=== PATIENT | male | born 1965 | race African-American/Black ===

== ENCOUNTER → 2021-04-10 | Outpatient (CLI) | payer OTHER ==
--- NOTE | 2021-04-10 10:21 | REP ---
INDICATION: PAIN IN BILAT KNEES. COMPARISON: None. TECHNIQUE: Single AP weightbearing view of the bilateral knees FINDINGS: Early advanced osteoarthritic degenerative changes are appreciated (right greater than left). Findings include subchondral sclerosis, predominately medial joint space narrowing, and small amounts of chondrocalcinosis. Left knee also includes medial osteophytosis. IMPRESSION: Early advanced osteoarthritic degenerative changes (right greater than left) <Electronically signed by Eliseo Vidal > 04/10/21 1015
== END ==
LOC: M SOG 09:42
PROVIDERS: ATTEND Orthopaedic Surgery Adult Reconstructive Orthopaedic Surgery
DX: M17.0 Bilateral primary osteoarthritis of knee (principal)

== ENCOUNTER → 2021-05-17 | Outpatient (CLI) | payer OTHER ==
--- NOTE | 2021-05-17 13:39 | REP ---
INDICATION: OA OF RT KNEE. COMPARISON: X-ray right knee 02/09/2021 TECHNIQUE: [facility] protocol with axial images through the hip, knee and ankle and both coronal and sagittal reconstructions for these joints, all and bone window settings. FINDINGS: Right hip: There is a very minimal rim osteophyte at the acetabular roof I do not see significant hip joint space narrowing. There is no AVN or fracture. Femoral head neck and trochanter show no fracture or focal lesion proximal femoral shaft was intact acetabuli pubic rami symphysis pubis were unremarkable Right knee: There is tricompartment osteoarthritic change. There is some mild narrowing of the medial compartment with sclerotic changes in tibial plateau. Prominent marginal osteophytes the medial greater than lateral joint margin. Spurring from the intercondylar margins as well as the tibial spines also noted. I see no tibial plateau depressed fracture. Proximal tibiofibular articulation is normal. Right ankle: There is a small plantar calcaneal spur. Achilles tendon grossly intact minor degenerative changes at the ankle with a few small ossific densities that may be old avulsions off the distal tip medial malleolus. There is no talar dome osteochondral defect. The distal tibia and fibula show no acute fracture. Subtalar joints show marginal osteophytes at the posterior margin of the posterior subtalar joint. Middle and anterior subtalar joints intact. The talonavicular calcaneocuboid joints are normal. Cuboid and other tarsal bones and their articulations which each other and the visualized metatarsals unremarkable. IMPRESSION: 1. Tricompartment osteoarthritic change at the knee greatest in the medial compartment with narrowing of the joint space and most prominent osteophytes at its joint margins. Sclerotic appearance of the tibial plafond and without tibial plateau depression fracture. No definite loose body or osteochondral defect. Less degenerative changes in the patellofemoral and least in the lateral joint compartment of the knee. No joint effusion or loose body. 2. Couple of tiny old avulsions off the distal tip medial malleolus. Mortise joint preserved. Small heel spur. No acute fracture or destructive lesion. 3. Minimal degenerative changes at the hip. Nothing acute there. <Electronically signed by Rio Guadarrama > 05/17/21 [id number]
== END ==
LOC: M RAD 12:52
PROVIDERS: ATTEND Orthopaedic Surgery Adult Reconstructive Orthopaedic Surgery
DX: M17.0 Bilateral primary osteoarthritis of knee (principal); Z87.828 Personal history of other (healed) physical injury and trauma

== ENCOUNTER 2021-06-04 06:07 | Inpatient (IN) | payer OTHER ==
[2021-06-04] VITALS (7 sets, daily range): BP systolic 101–138; BP diastolic 63–88
[~2021-06-04] VITALS: Ht 170.2 cm; Wt 100.6 kg
[~2021-06-04 06:07] MED LIST: ACETAMINOPHEN 500 MG TAB PO ONE; LR 1,000 ML IV ONE; NAPROXEN 250 MG TAB PO ONE; NS 1,000 ML IV ONE; PREGABALIN 25 MG CAP (LYRICA) PO ONE; ROPIVA 125MG/EPINEPH 0.25MG/CLONID 40MCG/KETOR 15MG IN NS 50ML SYRINGE PA ONE; ceFAZolin SOD 2 GM in IV 1 EA IV ONE; dexameTHASONE 4 MG/ML 1ML VIAL (J1100 PER 1MG) IV ONE
[2021-06-04] MEDS ORDERED: propofoL 200 MG/20 ML VIAL As Ordered ONE ×4 (07:07→08:21)
[2021-06-04] MEDS ORDERED: fentaNYL 100 MCG/2 ML INJECTION (J3010) As Ordered ONE (07:07)
[2021-06-04] MEDS ORDERED: MIDAZOLAM INJ 2MG/2ML VIAL (J2250 PER 1MG) As Ordered ONE (07:08)
[2021-06-04] MEDS ORDERED: TRANEXAMIC ACID 100 MG/ML 10ML VIAL As Ordered ONE ×2 (07:12→08:04)
[2021-06-04] MEDS ORDERED: PHENYLephrine 500MCG 5ML (100MCG/ML) SYRINGE As Ordered ONE (08:36)
[2021-06-04] MEDS ORDERED: KETOROLAC 60MG 2ML VIAL As Ordered ONE (10:08)
[2021-06-04] MEDS ORDERED: LR 1,000 ML IV SCH (11:00)
[2021-06-04] MEDS ORDERED: METOCLOPRAMIDE INJ 10MG/2ML VIAL (J2765 PER 1) IV PRN (11:00)
[2021-06-04] MEDS ORDERED: ONDANSETRON 4MG/2ML VIAL IV PRN ×2 (11:00→11:10)
[2021-06-04] MEDS ORDERED: oxyCODONE 5MG TAB PO PRN ×3 (11:00→11:15)
[2021-06-04] MEDS ORDERED: MORPHINE 2 MG/ML 1ML VIAL (J2270) IV PRN (11:00)
[2021-06-04] MEDS ORDERED: fentaNYL 100 MCG/2 ML INJECTION (J3010) IV PRN (11:00)
--- NOTE | 2021-06-04 11:06 | ROOPDOC ---
[facility] Report Of Operation Report of Operation DATE OF PROCEDURE: 06/04/21 PREPROCEDURE DIAGNOSES: Right knee osteoarthritis POSTPROCEDURE DIAGNOSES: Right knee osteoarthritis PROCEDURE PERFORMED: Right Eric total knee SURGEON: Funmi Licona MD FINANCIAL ASSISTANCE ADVISOR: JUDE sheppard MD ANESTHESIA: Spinal. ESTIMATED BLOOD LOSS: Approximately less than 100 mL. COMPLICATIONS: No known complications. REMARKS: Patient was seen in the preoperative area and right knee was marked. Consent was reviewed for the Eric right total knee arthroplasty as well. Risks and benefits were discussed as previously described. Components: Milo triathlon system press-fit 38 x 11 mm patella Size 7 tibia tritanium Size 6 femur CR tritanium 9 mm CS polyethylene FINDINGS: Tricompartmental osteoarthritis left knee SPECIMENS REMOVED: None PROCEDURE NOTE: The patient was seen in the preoperative area and status was updated. [facility] plan was reviewed prior to surgery and adjusted appropriately. DESCRIPTION OF PROCEDURE: Patient was taken to the operating room and after a checklist was performed, the underwent a spinal anesthetic. The patient was then placed supine. The operative leg was then cleansed with chlorhexidine wash followed by 2 times alcohol swab followed by hydrogen peroxide wash. 2 chlorhexidine prep once were then used to clean the leg. The operative extremit y was then prepped and draped in the standard sterile fashion. This was done utilizing the Eric leg mejia device. A surgical pause was then carried out followed by the surgical safety checklist. 2 stab hole incisions were made approximately 4 fingerbreadths below the tibial tubercle of the left knee for the tibial array pins which were placed. The midline incision over the knee followed by the medial arthrotomy was then carried out. Cautery was used to control bleeders. The soft tissue and fat pad were removed using electrocautery. The femoral array pins were then placed in the medial femoral condyle. The femoral tracker was then placed followed by the tibial tracker. The arrays were then placed over the array pins. The hip center was checked followed by the medial and lateral condyles of the ankle. The registration of the femur and tibia then occurred using the arrays in the Eric system. Osteophytes were removed at this point, as needed. The leg was then brought into extension and varus and valgus stresses were applied in extension and spoons were used for tensioning as well as a Lyons in flexion of approximately 95 degrees. Once the soft tissue adjustments were made to the Eric plan, the plan was carried out utilizing the robot. The 90 degree blade cuts were made first followed by the straight blade cuts. Once all the cuts were completed with the assistance of the Eric robot, the rongeur and osteotome were used to remove the bone segments. A lamina screen printing cloth spreader was used to help remove the medial lateral menisci remnants followed by a curved osteotome to remove any posterior osteophytes from the medial or lateral femoral condyles. A trial femur was placed and secured with a pin. The tibial component was then placed with a 9mm polyinsert. This was brought into extension and found to have appropriate stability in both flexion and extension. The leg was then brought into extension and the patella was measured using the caliper. A freehand cut using towel clips was used to remove the patellar surfa ce. This was then clamped and reamed appropriately for the press-fit components. A trial was placed and taken through range of motion and found to be nice and stable. The tibia was then appropriately positioned with the correct amount of rotation lined up with the medial third of the tibial tubercle. This was pinned and the keel punch was completed followed by the four-point reaming for the press-fit component. The CR femur had the lug holes drilled. The RE CK local anesthetic cocktail was instilled in the standard fashion. The wound was thoroughly irrigated with pulse lavage. The tibia was then press-fit in position using the mallet and impactors. The femur was then flexed high and positioned aligning the lug holes. This component was impacted then brought out into 90 degrees and impacted further to avoid anywhere to the metal components. The 9 mm polyethylene insert was then trialed, found appropriate and the final component was placed and impacted. The leg was brought into extension and the press-fit polyethylene patellar component was tightened and impacted utilizing the compression device The leg was taken through stable range of motion. It was thoroughly irrigated. Electrocautery was used to control any bleeders. A layered closure using #1 Vicryl followed by strata fix for the arthrotomy. #1 Vicryl to close down the subcutaneous tissue followed by running subcutaneous 2.0 and then a three-point 0 Monocryl subcuticular stitch antibacterial. Layered irrigation with saline and Betadine occurred. Steri-Strips were applied followed by the Mepilex dressing Patient tolerated the procedure well with no known complications. They were taken to the recovery room in stable condition. The patient will be admitted to the hospitalist service with plan for evaluation with physical therapy and possible discharge home tomorrow. Discharge Instructions Total Knee Arthroplasty 1. Pain: You may take oxycodone as prescribed for pain. Supplement with Naproxen and Tylenol as needed. Ice machine to operative knee as tolerated. 2. Wound care: Remove dressing on postop day 7. Call [phone] with any questions or concerns. Hygiene: The patient may shower. No tub baths. Check dressing seal prior to bathing. 3. Activity: WBAT right lower extremity. Front wheeled walker versus crutches for ambulation. Fall precautions. 4. Driving: No driving until cleared by your surgeon. Do not drive if taking narcotic pain medications as these may make you drowsy. 5. DVT Prophylaxis: Continue taking aspirin 81 mg p.o. twice daily as prescribed for the prevention of blood clots. Ankle pumps every 1 hour while awake. JIMI hose at all times for 1 month after surgery. May remove for hygiene and wound care. 6. Placement: Plan is to discharge patient to home with home health including nursing and physical therapy. 7. Surgeon Follow-up: The patient is scheduled to be seen in Dr. Licona's office 2 weeks post op with xrays. 8. Primary care Follow-up: Please see your primary care provider in the next 2 to 5 weeks for general medical re-evaluation and medication review. 9. Labs: CBC without differential and BMP to be drawn on postop day 3 with results to PCP and please fax to [phone]. 10. Please contact [facility] if you have any questions or concerns at [phone]. FUNMI LICONA MD Jun 04, 2021 11:06
[2021-06-04] MEDS ORDERED: traMADol 50 MG TAB PO PRN (11:10)
[2021-06-04] MEDS ORDERED: SENNA 8.6 MG TAB (SENOKOT) PO PRN (11:10)
--- NOTE | 2021-06-04 11:11 | REP ---
INDICATION: POST OP IN PACU COMPARISON: 02/09/2021 a pre operative outside exam. TECHNIQUE: AP and lateral portable views. FINDINGS: Since the last examination a total knee prosthetic device has been placed the femoral and tibial components of which are well seated and well approximated. There is expected postoperative soft tissue swelling. The alignment is near anatomical. IMPRESSION: Within normal limits <Electronically signed by Zach Jean > 06/04/21 1104
[2021-06-04] MEDS: DOCUSATE SODIUM 100MG CAPSULE PO SCH ×2 (12:44→20:48)
[2021-06-04] MEDS: ACETAMINOPHEN TAB 650MG DOSE (2X325MG) PO SCH ×2 (12:45→18:05)
[2021-06-04] MEDS: FERROUS SULFATE 325MG TAB PO SCH (12:45)
[2021-06-04] MEDS: ASCORBIC ACID 500 MG TAB PO SCH (12:45)
[2021-06-04] MEDS: NAPROXEN 250 MG TAB PO SCH ×2 (12:47→20:49)
--- NOTE | 2021-06-04 13:32 | HPEPDOC ---
[facility] Medical History & Physical Date of Admission Jun 04, 2021 Date of Service: Jun 04, 2021 Primary Care Physician: A Attending Physician: WILLIE VALENTIN MD History and Physical CHIEF COMPLAINT: Patient is being admitted for post-operation observation for non-complicated total knee arthroplasty. HISTORY OF PRESENT ILLNESS: Patient has been dealing with knee pain from osteoarthritis that he developed while serving in the [employer] in [facility]. Patient's knee pain started in 2007 but got extremely painful in 2012. The patient denies any trauma to the knee that caused his pain. Patient's total knee arthroplasty was performed without complications. Patient says that his knee pain is severely reduced after the surgery from what it was before even at rest. PAST MEDICAL HISTORY: 1. Previous infection with TB in 1994 when he was serving in the [employer]. Resolved with Antibiotic course for 6 months. PAST SURGICAL HISTORY: 1. Total knee arthroplasty - reason for current admission SOCIAL HISTORY: Employment: Active Tobacco use: None ETOH: None Illicit drug use: None IV drug use: None FAMILY HISTORY: Father: None Mother: None Siblings: None Children: No medical history Hereditary Diseases: No medical history Unexpected deaths due to medical reasons: Aunt was diagnosed with colon cancer. Grandfather from TB at 89 yrs old. ALLERGIES: Please see below. REVIEW OF SYSTEMS: CONSTITUTIONAL: Patient denies chills or night sweats. HEENT: Patient denies any pain or nuchal rigidity CARDIOVASCULAR: RESPIRATORY: Patient denies SOB, dyspnea, or hemoptysis. GASTROINTESTINAL: Patient denies N/V, ABD pain, constipation or diarrhea. Patient has not had a bowel movement since yesterday. GENITOURINARY: Patient denies dysuria or frequency. Patient has not urinated since surgery, but urinated right before. SKIN: Dry, warm, and flushed skin. MUSCULOSKELETAL: No loss of ROM of either extremity from surgery. NEUROLOGICAL: No pain, numbness, or tingling in Lower extremities. PSYCHIATRIC: Alert and oriented *3. HOME MEDICATIONS: Please see below. PHYSICAL EXAMINATION: VITAL SIGNS: see below GENERAL APPEARANCE: No fever, appears in no distress. HEENT: No palpable or visible thyroid or lymph node enlargement. CARDIOVASCULAR: Pt denies chest pain or palpitations. LUNGS: clear and equal BL lung sounds. ABDOMEN: Soft abdomen with no tenderness on palpation. Normal bowel sounds EXTREMITIES: No LE edema. 2/4 pedal and posterior tibial pulses BL. NEUROLOGICAL: No weakness in dorsiflexion or plantarflexion of both feet. LABORATORY DATA: See below. IMAGING: Knee X-ray 06/04/21 - 11am As reported: IMPRESSION: Within normal limits MICROBIOLOGY: Please see below. ASSESSMENT: Pt is a 55 year old male with a past medical history of TB infection in 1994 and Bl osteoartrhitis of the knees. Patient was admitted to the hospital for post-operative observation after un-complicated total knee arthroplasty of his right knee. Incidental finding on labs is that patient was hyperglycemic. Patient currently in much less pain than he complained of before the surgery. . PLAN: Total knee arthroplasty observation - Bacterial prophylaxis: cefazolin IV till discharge aleksandr. - Pain management: Patient is receiving Tylenol and alleve, oxycodone has been prescribed as needed. - N/V: Ondansetron has been prescribed as needed. Diabetic workup - Patient was found to be hyperglycemic (BG of 438 g/dl) on routine labs - patient currently complains of no symptoms. - HBAIc was ordered after hyperglycemia was discovered. Patient's labs will be monitored. - Patient was given Levemir to control blood glucose. - Patient will be coached and informed on his Diabetes and how to manage his diabetes. DVT prophylaxis - Aspirin 81 mg for DVT prophylaxis Disposition: Patient will most likely be discharged Aleksandr morning. Code status: Full code Vital Signs Vital Signs Date Time Temp Pulse Resp B/P (MAP) Pulse Ox O2 Delivery O2 Flow Rate FiO2 06/04/21 12:15 97.3 65 16 101/63 (76) 99 06/04/21 11:25 Room Air Home Medications No Active Prescriptions or Reported Meds Allergies Coded Allergies: No Known Allergies (Unverified , 05/16/21) A-FIB/CHADSVASC A-FIB History Current/History of A-Fib/PAF?: No Current PO Anticoag Therapy: No Age/Risk Factor Scoring CHADSVASC: CHADSVASC Response (Comments) Value Age Risk Factor Age < 65 years old 0 Gender Risk Factor Male 0 Hx of HTN No 0 Hx of Stroke/TIA/or VTE No 0 Hx of Diabetes Yes 1 Hx of Vascular Disease No 0 Total 1 Treatment Treatment ordered: NONE Reason Anticoagulant not given: Not indicated/[id number] SON ESCOTO S-3 Jun 04, 2021 13:32
[2021-06-04 15:42] LABS: HEMATOCRIT 38.2 % (42.0-52.0); HEMOGLOBIN 13.2 g/dl (13.5-17.5); MEAN CORPUSCULAR HEMOGLOBIN 28.8 pg (27.0-33.0); MEAN CORPUSCULAR HGB CONC 34.6 g/dl (32.0-36.5); MEAN CORPUSCULAR VOLUME 83.4 fl (80.0-96.0); PLATELET COUNT, AUTOMATED 234 10^3/uL (150-450); RED BLOOD COUNT 4.58 10^6/uL (4.30-6.10); WHITE BLOOD COUNT 11.4 10^3/uL (4.0-10.0)
[2021-06-04 16:14] LABS: BLOOD UREA NITROGEN 14 MG/DL (7-18); CALCIUM LEVEL 8.8 MG/DL (8.5-10.1); CARBON DIOXIDE LEVEL 25 MEQ/L (21-32); CHLORIDE LEVEL 105 MEQ/L (98-107); CREATININE FOR GFR 1.44 MG/DL (0.70-1.30); GLOMERULAR FILTRATION RATE > 60.0 (>56); GLUCOSE, FASTING 438 MG/DL (70-100); POTASSIUM SERUM 4.2 MEQ/L (3.5-5.1); SODIUM LEVEL 136 MEQ/L (136-145)
[2021-06-04 16:16] LABS: TOTAL 25(OH) VITAMIN D 17.4 NG/ML (30.0-100.0)
[2021-06-04] MEDS ORDERED: LEVEMIR (INSULIN DETEMIR) 1 UNITS/0.01ML SC ONE (16:20)
[2021-06-04] MEDS: ceFAZolin SOD 2 GM in IV 1 EA IV SCH (16:23)
[2021-06-04] MEDS ORDERED: DEXTROSE 50% 50 ML SYRINGE IV PRN (16:25)
[2021-06-04] MEDS ORDERED: GLUCAGON INJ 1MG VIAL SC PRN (16:25)
[2021-06-04] MEDS ORDERED: GLUCOSE 4GM CHEW TABLET PO PRN (16:25)
[2021-06-04] MEDS: HumaLOG INSULIN (NovoLOG) PER UNIT SC SCH (16:42)
[2021-06-04 17:01] LABS: HEMOGLOBIN A1c 8.4 %
[2021-06-04] MEDS ORDERED: HumaLOG INSULIN (NovoLOG) PER UNIT SC SCH (21:00)
[2021-06-05] MEDS: ACETAMINOPHEN TAB 650MG DOSE (2X325MG) PO SCH ×3 (00:41→11:57)
[2021-06-05] MEDS: ceFAZolin SOD 2 GM in IV 1 EA IV SCH (00:41)
[2021-06-05 06:00] VITALS: BP 132/77
[2021-06-05 06:12] LABS: HEMATOCRIT 36.3 % (42.0-52.0); HEMOGLOBIN 12.6 g/dl (13.5-17.5); MEAN CORPUSCULAR HEMOGLOBIN 28.6 pg (27.0-33.0); MEAN CORPUSCULAR HGB CONC 34.7 g/dl (32.0-36.5); MEAN CORPUSCULAR VOLUME 82.5 fl (80.0-96.0); PLATELET COUNT, AUTOMATED 226 10^3/uL (150-450); WHITE BLOOD COUNT 22.5 10^3/uL (4.0-10.0)
[2021-06-05 06:42] LABS: BLOOD UREA NITROGEN 17 MG/DL (7-18); CALCIUM LEVEL 8.6 MG/DL (8.5-10.1); CARBON DIOXIDE LEVEL 26 MEQ/L (21-32); CHLORIDE LEVEL 109 MEQ/L (98-107); CREATININE FOR GFR 1.22 MG/DL (0.70-1.30); GLOMERULAR FILTRATION RATE > 60.0 (>56); GLUCOSE, FASTING 234 MG/DL (70-100); SODIUM LEVEL 141 MEQ/L (136-145)
--- NOTE | 2021-06-05 07:39 | IPNPDOC ---
Text Note Date of Service The patient was seen on 06/05/21. NOTE POD1 R TKA Pt well. No significant complaints or concerns. Local anesthetic wearing off. Pt states he mobilized to the bathroom last night without his walker or assistance. Bulky dressing intact. Removed. No signs of staining to the dressing, intact. Grossly NVI right foot/ankle. Moving toes and ankle. Palpable DP pulse. Filled Ice machine and applied for the patient with pillowcase barrier. PACU xray imaging ordered and reviewed by myself, shows the right TKA in position without signs of complication. Plan for PT evaluation with likely discharge home today. Discharge Instructions Total Knee Arthroplasty 1. Pain: You may take oxycodone as prescribed for pain. Supplement with Naproxen and Tylenol as needed. Ice pack to operative knee as tolerated. 2. Wound care: Remove dressing on postop day 7. Call [phone] with any questions or concerns. Hygiene: The patient may shower. No tub baths. Check dressing seal prior to bathing. 3. Activity: WBAT right lower extremity. Front wheeled walker versus crutches for ambulation. Fall precautions. 4. Driving: No driving until cleared by your surgeon. Do not drive if taking narcotic pain medications as these may make you drowsy. 5. DVT Prophylaxis: Continue taking ASA 81 mg PO BID as prescribed for the pr evention of blood clots. Ankle pumps every 1 hour while awake. JIMI hose at all times for 1 month after surgery. May remove for hygiene and wound care. 6. Placement: Plan is to discharge patient to home with home health including nursing and physical therapy. 7. Surgeon Follow-up: The patient is scheduled to be seen in Dr. Licona's office 2 weeks post op with xrays. 8. Primary care Follow-up: Please see your primary care provider in the next 2 to 5 weeks for general medical re-evaluation and medication review. 9. Labs: CBC without differential and BMP to be drawn on POD 3 with results to PCP and please fax to [phone]. 10. Please contact [facility] if you have any questions or concerns at [phone]. VS,Fishbone, I+O VS, Fishbone, I+O Laboratory Tests 06/04/21 15:13 06/05/21 05:50 Vital Signs Date Time Temp Pulse Resp B/P (MAP) Pulse Ox O2 Delivery O2 Flow Rate FiO2 06/05/21 06:00 97.5 61 18 132/77 (95) 97 Room Air I&O- Last 24 Hours up to 6 AM 06/05/21 06:00 Intake Total 4274 ml Output Total 100 ml Balance 4174 ml FUNMI LICONA MD Jun 05, 2021 07:39
[2021-06-05] MEDS: NAPROXEN 250 MG TAB PO SCH (08:15)
[2021-06-05] MEDS: DOCUSATE SODIUM 100MG CAPSULE PO SCH (08:15)
[2021-06-05] MEDS: ASCORBIC ACID 500 MG TAB PO SCH (08:15)
[2021-06-05] MEDS: FERROUS SULFATE 325MG TAB PO SCH (08:15)
[2021-06-05] MEDS: HumaLOG INSULIN (NovoLOG) PER UNIT SC SCH ×2 (08:15→11:57)
[2021-06-05] MEDS ORDERED: LEVEMIR (INSULIN DETEMIR) 1 UNITS/0.01ML SC SCH (09:00)
[2021-06-05 10:00] VITALS: BP 128/74
[2021-06-05] MEDS ORDERED: OXYC-517 PO ×2 (11:54→12:00)
[2021-06-05] MEDS ORDERED: FERR1TAB8 PO (11:54)
[2021-06-05] MEDS ORDERED: ECOT81TA5 PO (11:54)
[2021-06-05] MEDS ORDERED: METF-839 PO (11:54)
[2021-06-05] MEDS ORDERED: NAPR-849 PO (11:54)
[2021-06-05] MEDS ORDERED: LANCMIS33 TOP (11:54)
[2021-06-05] MEDS ORDERED: ALCO1MED XX (11:54)
[2021-06-05] MEDS ORDERED: GLUCMIS7 XX (11:54)
--- NOTE | 2021-06-05 13:38 | IPNPDOC ---
Text Note Date of Service The patient was seen on 06/05/21. Subjective: Patient was admitted to the hospital for observation after total knee arthroplasty of the right knee. Patient was lying supine when seen by medical team. Patient was not in acute distress. Patient's vitals were in normal limits. Review of systems: Pt denies headaches, chest pain, palpitations, SOB, dyspnea, ABD pain, urinary pain, tingling, and numbness. Physical exam: General: No fever or chills Psych: Alert and oriented *3 HEENT: No thyroid or lymph node enlargement Heart: Normal S1 and S2 heart sounds. No murmur or no extra heart sounds. Lungs: BL clear and equal breath sounds Extremities: No edema, Pt 2/4 BL posterior tibial and pedal pulses. Neuro: No weakness or loss of sensation in the patient's feet. Assessment: Pt is a 55 year old male with a past medical history of TB infection in 1994 and Bl osteoartrhitis of the knees. Patient was admitted to the hospital for po st-operative observation after un-complicated total knee arthroplasty of his right knee. Incidental finding on labs is that patient was hyperglycemic and has elevated HBAIC - patient was diagnosed with diabetes. Patient currently in much less pain than he complained of before the surgery. PLAN: Total knee arthroplasty observation - Bacterial prophylaxis: cefazolin IV till discharge aleksandr. - Pain management: Patient is receiving Tylenol and Naproxen, oxycodone has been prescribed as needed. - N/V: Ondansetron has been prescribed as needed. Diabetic workup - Patient was found to be hyperglycemic (BG of 438 g/dl) on routine labs yesterday- patient currently complains of no symptoms. - Patient's BG this morning was ___g/dl - HBAIc last night was 8.__% - indicating the patient has a diagnosis of Diabetes mellitus - Patient was given Levemir to control blood glucose in the hospital. - Patient will be DVT prophylaxis - Aspirin 81 mg for DVT prophylaxis Disposition: Patient will most likely be discharged Aleksandr morning. 2. Wound care: Remove dressing on postop day 7. Call [phone] with any questions or concerns. Hygiene: The patient may shower. No tub baths. Check dressing seal prior to bathing. 3. Activity: WBAT right lower extremity. Front wheeled walker versus crutches for ambulation. Fall precautions. 4. Driving: No driving until cleared by your surgeon. Do not drive if taking narcotic pain medications as these may make you drowsy. 5. DVT Prophylaxis: Continue taking ASA 81 mg PO BID as prescribed for the prevention of blood clots. Ankle pumps every 1 hour while awake. JIMI hose at all times for 1 month after surgery. May remove for hygiene and wound care. 6. Placement: Plan is to discharge patient to home with home health including nursing and physical therapy. 7. Surgeon Follow-up: The patient is scheduled to be seen in Dr. Moss's office 2 weeks post op with xrays. 8. Primary care Follow-up: Please see your primary care provider in the next 2 to 5 weeks for general medical re-evaluation and medication review. 9. Labs: CBC without differential and BMP to be drawn on POD 3 with results to PCP and please fax to [phone]. 10. Please contact [facility] if you have any questions or concerns at [phone]. VS,Fishbone, I+O VS, Fishbone, I+O Laboratory Tests 06/04/21 15:13 06/05/21 05:50 Vital Signs Date Time Temp Pulse Resp B/P (MAP) Pulse Ox O2 Delivery O2 Flow Rate FiO2 06/05/21 10:00 97.2 76 19 128/74 (92) 94 Room Air I&O- Last 24 Hours up to 6 AM 06/05/21 06:00 Intake Total 4274 ml Output Total 100 ml Balance 4174 ml SON ESCOTO S-3 Jun 05, 2021 13:38
--- NOTE | 2021-06-05 13:52 | DS.PDOC ---
Discharge Summary General Date of Admission Jun 04, 2021 at 12:07 Date of Discharge 06/05/2021 Attending Physician: WILLIE VALENTIN MD Discharge Summary PROCEDURES PERFORMED DURING STAY: total knee arthroplasty. ADMITTING DIAGNOSES: 1. Observation for total knee arthroplasty DISCHARGE DIAGNOSES: 1. Observation for total knee arthroplasty 2. Diabetes Mellitus COMPLICATIONS/CHIEF COMPLAINT: Right Knee Osteoarthritis. HISTORY OF PRESENT ILLNESS: Patient was admitted to the hospital for post- operative observation after un-complicated total knee arthroplasty of his right knee. Patient has had knee pain since 2007 and started to worsen in 2012 when the pt was stationed in [facility]. HOSPITAL COURSE: Patient was admitted to the hospital for post-operative observation after un-complicated total knee arthroplasty of his right knee. Incidental finding on labs patient was hyperglycemic and has elevated HBAIc - patient was diagnosed with diabetes. HBAIc last night was 8.4% - confirming Diabetes mellitus. Patient's BG this morning was 236 g/dl DISCHARGE MEDICATIONS: Please see below. ALLERGIES: Please see below. Review of systems: Pt denies headaches, chest pain, palpitations, SOB, dyspnea, ABD pain, urinary pain, tingling, and numbness. PHYSICAL EXAMINATION ON DISCHARGE: General: No fever or chills Psych: Alert and oriented *3 HEENT: No thyroid or lymph node enlargement Heart: Normal S1 and S2 heart sounds. No murmur or no extra heart sounds. Lungs: BL clear and equal breath sounds. Extremities: No edema, Pt 2/4 BL posterior tibial and pedal pulses. Neuro: No weakness or loss of sensation in the patient's feet. LABORATORY DATA: Please see below. IMAGING: No new imaging. PROGNOSIS: Good ACTIVITY: Refer to notes from orthopedics. DIET: Patient was coached on healthy eating to control his diabetes. DISCHARGE PLAN: - Pain management: Patient is receiving Tylenol and Naproxen, oxycodone has been prescribed as needed. - N/V: Ondansetron has been prescribed as needed. - Metformin 2 times a day oral, 500mg. - DVT prophylaxis- Aspirin 81 mg for DVT prophylaxis - Orthopedic instructions for further instructions regarding post-operative care DISPOSITION: Discharged today. DISCHARGE INSTRUCTIONS: - Pain management: Patient is receiving Tylenol and Naproxen, oxycodone has been prescribed as needed. - N/V: Ondansetron has been prescribed as needed. - Metformin 2 times a day oral, 500mg. - DVT prophylaxis- Aspirin 81 mg for DVT prophylaxis - Orthopedic instructions for further instructions regarding post-operative care ITEMS TO FOLLOWUP ON ON OUTPATIENT: 1. Orthopedic instructions for further instructions regarding post-operative care DISCHARGE CONDITION: Stable. TIME SPENT ON DISCHARGE: 45 minutes. Vital Signs/I&Os Vital Signs Date Time Temp Pulse Resp B/P (MAP) Pulse Ox O2 Delivery O2 Flow Rate FiO2 06/05/21 10:00 97.2 76 19 128/74 (92) 94 Room Air I&O- Last 24 Hours up to 6 AM 06/05/21 06:00 Intake Total 4274 ml Output Total 100 ml Balance 4174 ml Laboratory Data Labs 24H Laboratory Tests 2 06/04/21 15:13: Nucleated Red Blood Cells % (auto) 0.0, Anion Gap 6L, Glomerular Filtration Rate > 60.0, Estimated Mean Plasma Glucose 194H, Hemoglobin A1c 8.4, Calcium Level 8.8, 25-Hydroxy Vitamin D Total 17.4L 06/04/21 20:41: Bedside Glucose (Misc Panel) 312H 06/05/21 05:50: Nucleated Red Blood Cells % (auto) 0.0, Anion Gap 6L, Glomerular Filtration Rate > 60.0, Calcium Level 8.6 06/05/21 11:29: Bedside Glucose (Misc Panel) 349H CBC/BMP Laboratory Tests 06/04/21 15:13 06/05/21 05:50 FSBS Laboratory Tests Test 06/04/21 20:41 06/05/21 11:29 Range/Units Bedside Glucose (Misc Panel) 312 349 70-105 MG/DL Discharge Medications Scheduled Aspirin (Ecotrin) 81 Mg Tablet.dr, 81 MG PO BID Ferrous Sulfate (Ferrous Sulfate) 325 Mg Tablet, 325 MG PO DAILY Metformin HCl (Metformin HCl) 500 Mg Tablet, 1 TAB PO BID Naproxen (Naproxen) 250 Mg Tablet, 250 MG PO Q12H Scheduled PRN Oxycodone HCl (Oxycodone HCl) 5 Mg Tablet, 5 MG PO Q4H PRN for MODERATE PAIN (PS 5-8) . Allergies Coded Allergies: No Known Allergies (Unverified , 05/16/21) SON ESCOTO S-3 Jun 05, 2021 13:52
== END 2021-06-05 13:15 | disposition home health service (06) | DRG 470 ==
LOC: M SDC 06:07 → M MS5PR 11:50 → M SDC 12:06 → M MS5PR 12:07
PROVIDERS: ADMIT Orthopaedic Surgery Adult Reconstructive Orthopaedic Surgery; ATTEND Internal Medicine
PROC: 8E0Y0CZ Robotic Assisted Procedure of Lower Extremity, Open Approach (ICD-10-PCS; 2021-06-04)
PROC: 0SRC0JZ Replacement of Right Knee Joint with Synthetic Substitute, Open Approach (ICD-10-PCS; principal; 2021-06-04 07:30)
DX: M17.11 Unilateral primary osteoarthritis, right knee (principal); E11.9 Type 2 diabetes mellitus without complications

== ENCOUNTER → 2021-06-28 | Outpatient (CLI) | payer OTHER ==
[~2021-06-28] MED LIST changes: -ACETAMINOPHEN 500 MG TAB PO ONE; +ALCO1MED XX; +ECOT81TA5 PO; +FERR1TAB8 PO; +GLUCMIS7 XX; +LANCMIS33 TOP; -LR 1,000 ML IV ONE; +METF-839 PO; +NAPR-849 PO; -NAPROXEN 250 MG TAB PO ONE; -NS 1,000 ML IV ONE; +OXYC-517 PO; -PREGABALIN 25 MG CAP (LYRICA) PO ONE; -ROPIVA 125MG/EPINEPH 0.25MG/CLONID 40MCG/KETOR 15MG IN NS 50ML SYRINGE PA ONE; -ceFAZolin SOD 2 GM in IV 1 EA IV ONE; -dexameTHASONE 4 MG/ML 1ML VIAL (J1100 PER 1MG) IV ONE
== END ==
LOC: M SOG 08:56
PROVIDERS: ATTEND Orthopaedic Surgery Adult Reconstructive Orthopaedic Surgery
DX: Z48.89 Encounter for other specified surgical aftercare (principal)

== ENCOUNTER → 2021-07-09 | Outpatient (REF) | payer OTHER ==
[2021-07-09 18:12] LABS: MALB URINE SIEMENS 25.9 MG/L; MAU/CREAT RATIO 15.4 MCG/MG (0.0-30.0)
== END ==
LOC: M LAB REF 17:21
PROVIDERS: ATTEND Nurse Practitioner Family
DX: E11.65 Type 2 diabetes mellitus with hyperglycemia (principal)

== ENCOUNTER 2021-12-04 06:17 | Observation (INO) | payer OTHER ==
[~2021-12-04] VITALS: Ht 172.7 cm; Wt 97.0 kg
[2021-12-04] VITALS (8 sets, daily range): BP systolic 111–118; BP diastolic 70–74
[~2021-12-04 06:17] MED LIST changes: +ACETAMINOPHEN 500 MG TAB PO ONE; +ASPI-1 PO; +JARD1TAB PO; +LR 1,000 ML IV ONE; +NAPROXEN 250 MG TAB PO ONE; +NS 1,000 ML IV ONE; +PREGABALIN 25 MG CAP (LYRICA) PO ONE; +ceFAZolin SOD 2 GM in IV 1 EA IV ONE; +dexameTHASONE 4 MG/ML 1ML VIAL (J1100 PER 1MG) IV ONE
[2021-12-04] MEDS ORDERED: fentaNYL 100 MCG/2 ML INJECTION As Ordered ONE (06:49)
[2021-12-04] MEDS ORDERED: MIDAZOLAM INJ 2MG/2ML VIAL (J2250 PER 1MG) As Ordered ONE (06:49)
[2021-12-04] MEDS ORDERED: ROCURONIUM BROMIDE 50 MG/5 ML VIAL As Ordered ONE (06:50)
[2021-12-04] MEDS ORDERED: propofoL 200 MG/20 ML VIAL As Ordered ONE (06:50)
[2021-12-04] MEDS ORDERED: LIDOCAINE 2% 100MG/5ML SDV (FOR ANES.) As Ordered ONE (06:50)
[2021-12-04] MEDS ORDERED: ROPIVA 125MG/EPINEPH 0.25MG/CLONID 40MCG/KETOR 15MG IN NS 50ML SYRINGE PA ONE (07:00)
[2021-12-04] MEDS ORDERED: TRANEXAMIC ACID 100 MG/ML 10ML VIAL As Ordered ONE (07:07)
[2021-12-04] MEDS ORDERED: propofoL 500 MG/50 ML VIAL As Ordered ONE ×3 (07:20→09:04)
[2021-12-04] MEDS ORDERED: dexameTHASONE 4 MG/ML 1ML VIAL (J1100 PER 1MG) As Ordered ONE (07:45)
[2021-12-04] MEDS ORDERED: METOPROLOL 5 MG/5 ML VIAL As Ordered ONE (08:14)
[2021-12-04] MEDS ORDERED: GLYCOPYRROLATE INJ 0.2 MG/ML 2 ML VIAL As Ordered ONE (09:47)
[2021-12-04] MEDS ORDERED: KETOROLAC 60MG 2ML VIAL As Ordered ONE (09:48)
[2021-12-04] MEDS ORDERED: ONDANSETRON 4MG/2ML VIAL IV PRN ×2 (10:20→10:30)
[2021-12-04] MEDS ORDERED: fentaNYL 100 MCG/2 ML INJECTION IV PRN (10:20)
[2021-12-04] MEDS ORDERED: LR 1,000 ML IV SCH (10:20)
[2021-12-04] MEDS ORDERED: oxyCODONE 5MG TAB PO PRN ×3 (10:20→10:30)
[2021-12-04] MEDS ORDERED: traMADol 50 MG TAB PO PRN (10:30)
[2021-12-04] MEDS ORDERED: SENNA 8.6 MG TAB (SENOKOT) PO PRN (10:30)
[2021-12-04] MEDS ORDERED: GLUCAGON INJ 1MG VIAL SC PRN (10:45)
[2021-12-04] MEDS ORDERED: DEXTROSE 50% 50 ML SYRINGE IV PRN (10:45)
[2021-12-04] MEDS ORDERED: GLUCOSE 4GM CHEW TABLET PO PRN (10:45)
[2021-12-04] MEDS ORDERED: ALBUTEROL 90 MCG/ACT 8GM HFA INHALER INH PRN (11:00)
[2021-12-04 11:05] LABS: HEMATOCRIT 42.4 % (42.0-52.0); MEAN CORPUSCULAR HEMOGLOBIN 26.9 pg (27.0-33.0); MEAN CORPUSCULAR VOLUME 81.5 fl (80.0-96.0); PLATELET COUNT, AUTOMATED 231 10^3/uL (150-450); WHITE BLOOD COUNT 7.6 10^3/uL (4.0-10.0)
[2021-12-04 11:17] LABS: INR 0.99; PROTHROMBIN TIME 13.5 SECONDS (12.7-14.5)
[2021-12-04 11:30] LABS: ALBUMIN 3.4 GM/DL (3.2-5.2); ALT/SGPT 25 U/L (12-78); BILIRUBIN,TOTAL 0.4 MG/DL (0.2-1.0); BLOOD UREA NITROGEN 14 MG/DL (7-18); CALCIUM LEVEL 8.9 MG/DL (8.5-10.1); CARBON DIOXIDE LEVEL 28 MEQ/L (21-32); CHLORIDE LEVEL 107 MEQ/L (98-107); CREATININE FOR GFR 1.18 MG/DL (0.70-1.30); GLOMERULAR FILTRATION RATE > 60.0 (>56); GLUCOSE, FASTING 166 MG/DL (70-100); POTASSIUM SERUM 4.5 MEQ/L (3.5-5.1); SODIUM LEVEL 140 MEQ/L (136-145); TOTAL PROTEIN 6.7 GM/DL (6.4-8.2)
[2021-12-04] MEDS: HumaLOG INSULIN (NovoLOG) PER UNIT SC SCH ×2 (12:00→17:24)
[2021-12-04] MEDS: LR 1,000 ML IV SCH ×2 (14:25→20:35)
[2021-12-04] MEDS: ACETAMINOPHEN TAB 650MG DOSE (2X325MG) PO SCH ×2 (14:26→20:44)
[2021-12-04] MEDS: ceFAZolin SOD 2 GM in IV 1 EA IV SCH (16:49)
[2021-12-04] MEDS: DOCUSATE SODIUM 100MG CAPSULE PO SCH (20:43)
[2021-12-04] MEDS: ASPIRIN 81MG ENTERIC TABLET PO SCH (20:44)
[2021-12-04] MEDS: NAPROXEN 250 MG TAB PO SCH (20:45)
[2021-12-04] MEDS ORDERED: HumaLOG INSULIN (NovoLOG) PER UNIT SC SCH (21:00)
[2021-12-05] MEDS: ceFAZolin SOD 2 GM in IV 1 EA IV SCH (00:13)
[2021-12-05] MEDS: ACETAMINOPHEN TAB 650MG DOSE (2X325MG) PO SCH ×2 (00:14→08:51)
[2021-12-05 03:00] VITALS: BP 110/68
[2021-12-05 05:55] LABS: HEMATOCRIT 38.4 % (42.0-52.0); HEMOGLOBIN 12.5 g/dl (13.5-17.5); MEAN CORPUSCULAR HEMOGLOBIN 26.7 pg (27.0-33.0); MEAN CORPUSCULAR HGB CONC 32.6 g/dl (32.0-36.5); MEAN CORPUSCULAR VOLUME 82.1 fl (80.0-96.0); PLATELET COUNT, AUTOMATED 233 10^3/uL (150-450); RED BLOOD COUNT 4.68 10^6/uL (4.30-6.10)
[2021-12-05 06:00] VITALS: BP 112/66
[2021-12-05] MEDS: LR 1,000 ML IV SCH (06:10)
[2021-12-05] MEDS: NAPROXEN 250 MG TAB PO SCH (08:51)
[2021-12-05] MEDS: DOCUSATE SODIUM 100MG CAPSULE PO SCH (08:51)
[2021-12-05] MEDS: ASPIRIN 81MG ENTERIC TABLET PO SCH (08:51)
[2021-12-05] MEDS: HumaLOG INSULIN (NovoLOG) PER UNIT SC SCH (09:00)
[2021-12-05] MEDS ORDERED: FERROUS SULFATE 325MG TAB PO SCH (09:00)
[2021-12-05] MEDS ORDERED: ASCORBIC ACID 500 MG TAB PO SCH (09:00)
[2021-12-05] MEDS ORDERED: ASPI-551 PO (09:32)
[2021-12-05] MEDS ORDERED: ACET650T3 PO (09:32)
[2021-12-05] MEDS ORDERED: OXYC-517 PO ×2 (09:32→09:45)
== END 2021-12-05 12:00 | disposition home or self-care (01) ==
LOC: M SDC 06:17 → M MS5PR 10:41
PROVIDERS: ADMIT Internal Medicine; ATTEND Orthopaedic Surgery Adult Reconstructive Orthopaedic Surgery
DX: M17.12 Unilateral primary osteoarthritis, left knee (principal); M65.862 Other synovitis and tenosynovitis, left lower leg; E11.9 Type 2 diabetes mellitus without complications; Z79.899 Other long term (current) drug therapy; Z79.82 Long term (current) use of aspirin; Z79.84 Long term (current) use of oral hypoglycemic drugs; Z96.651 Presence of right artificial knee joint
CPT/HCPCS: 27447; 36415; 73560; 80053; 85027; 85610; 88304; 88311; 96365; 96366; 97116; 97162; 97530; C1776; J0690; J1100; J1885; J2250; S2900

== ENCOUNTER → 2021-12-17 | Outpatient (CLI) | payer OTHER ==
[~2021-12-17] MED LIST changes: +ACET650T3 PO; -ACETAMINOPHEN 500 MG TAB PO ONE; +ASPI-551 PO; -LR 1,000 ML IV ONE; -NAPROXEN 250 MG TAB PO ONE; -NS 1,000 ML IV ONE; -PREGABALIN 25 MG CAP (LYRICA) PO ONE; -ceFAZolin SOD 2 GM in IV 1 EA IV ONE; -dexameTHASONE 4 MG/ML 1ML VIAL (J1100 PER 1MG) IV ONE
== END ==
LOC: M SOG 08:35
PROVIDERS: ATTEND Orthopaedic Surgery Adult Reconstructive Orthopaedic Surgery
DX: Z96.652 Presence of left artificial knee joint (principal)

== ENCOUNTER → 2022-06-17 | Outpatient (CLI) | payer OTHER | LOC: M SOG 09:22 | PROVIDERS: ATTEND Orthopaedic Surgery Adult Reconstructive Orthopaedic Surgery | DX: Z96.653 Presence of artificial knee joint, bilateral (principal) ==

== ENCOUNTER → 2022-11-22 | Outpatient (CLI) | payer OTHER | LOC: M SOG 08:00 | PROVIDERS: ATTEND Orthopaedic Surgery Adult Reconstructive Orthopaedic Surgery | DX: Z96.653 Presence of artificial knee joint, bilateral (principal) ==